=== PATIENT | male | born 1955 | race Caucasian/White ===

== ENCOUNTER 2021-07-29 10:20 | Inpatient (IN) | payer SELFPAY ==
[2021-07-29 13:22] LABS: #Eosinphils 0.2 thou/uL (0.0-0.7); #Lymphocytes 1.9 thou/uL (1.20-3.40); #Monocytes 1.2 thou/uL (0.11-0.59); #Neutrophils 9.2 thou/uL (1.40-6.50); %Basophils 0.2 % (0.0-1.0); %Eosinophils 1.3 % (0.0-10.0); %Lymphocytes 14.9 % (21.0-51.0); %Monocytes 9.6 % (0.0-10.0); %Neutrophils 74.1 % (42.0-75.0); Hemoglobin 13.8 g/dL (14.0-18.0); Mean Corpuscular Hemoglobin 31.1 pg (27.0-31.0); Mean Corpuscular Volume 94.2 fL (78.0-98.0); Mean Platelet Volume 8.8 fL (7.4-10.4); Platelet Count 332 thou/uL (130-400); RBC Distribution Width 11.9 % (11.5-14.5); Red Blood Cell (RBC) Count 4.43 mill/uL (4.70-6.10); White Blood Cell (WBC) Count 12.5 thou/uL (4.8-10.8)
[2021-07-29 13:42] LABS: ALT (SGPT) 55 U/L (8-55); AST (SGOT) 27 U/L (5-34); Albumin 4.3 g/dL (3.4-4.8); Alkaline Phosphatase 155 U/L (40-110); Anion Gap 13 mmol/L (10-20); BUN (Urea Nitrogen) 13 mg/dL (8.4-25.7); Bilirubin, Total 0.8 mg/dL (0.2-1.2); CRP (Inflammatory) 2.93 mg/dL (= or < 0.5); Calc. Creatinine Clearance 0 mL/min (70-130); Calcium 9.4 mg/dL (7.8-10.44); Carbon Dioxide 25 mmol/L (23-31); Chloride 103 mmol/L (98-107); Glucose 138 mg/dL (80-115); Potassium 3.2 mmol/L (3.5-5.1); Protein, Total 8.3 g/dL (5.8-8.1); Sodium 138 mmol/L (136-145)
[2021-07-29] MEDS ORDERED: Cefepime 2 GM VIAL ONE (15:04)
[2021-07-29] MEDS ORDERED: Potassium Chloride 20 MEQ TAB ONE (15:04)
[2021-07-29] MEDS ORDERED: VANCOMYCIN 2 GRAM/400 ML BAG 2 GM in Premix Bag 1 BAG IVPB SCH (15:30)
[2021-07-29] MEDS ORDERED: HumaLOG 300 UNITS/3 ML VIAL SC PRN ×2 (16:55)
[2021-07-29] MEDS ORDERED: Dextrose 50% Abboject 50 ML SYRINGE SLOW IVP PRN (16:55)
[2021-07-29] MEDS ORDERED: Guaifenesin DM 100-10/5 ML UDCUP PO PRN (16:55)
[2021-07-29] MEDS ORDERED: HYDROcodone/Acetaminophen 7.5/325 mg Tablet PO PRN (16:55)
[2021-07-29] MEDS ORDERED: Dextrose 5% in Water 1,000 ML IV PRN (16:55)
[2021-07-29] MEDS ORDERED: Ondansetron PF 4 MG/2 ML Vial IVP PRN (16:55)
[2021-07-29] MEDS ORDERED: Acetaminophen 325 MG TAB PO PRN (16:55)
[2021-07-29] MEDS: metFORMIN 500 MG TAB PO SCH (17:57)
[2021-07-29] MEDS: Carvedilol 6.25 MG TAB PO SCH (17:57)
[2021-07-29 20:31] VITALS: BMI 35.9
[2021-07-29] MEDS: Famotidine 20 MG TAB PO SCH (20:47)
[2021-07-29] MEDS: Senokot S 8.6-50 MG TAB PO SCH (20:47)
[2021-07-29] MEDS: Lisinopril 10 MG TAB PO SCH (20:47)
[2021-07-29] MEDS ORDERED: Vancomycin 1 GM in Premix Bag 1 BAG IVPB SCH (21:00)
[2021-07-29 23:14] LABS: SARS-CoV-2 NAA Rapid Test DETECTED (NotDetected)
[2021-07-30] MEDS: Cefepime 1 GM in Sodium Chloride 0.9% 100 ML IVPB SCH ×2 (03:17→15:58)
[2021-07-30] MEDS: VANCOMYCIN 1.75 GM/350 ML BAG 1.75 GM in Premix Bag 1 BAG IVPB SCH ×2 (04:33→16:48)
[2021-07-30 06:17] LABS: #Eosinphils 0.2 thou/uL (0.0-0.7); #Lymphocytes 2.1 thou/uL (1.20-3.40); #Monocytes 1.1 thou/uL (0.11-0.59); #Neutrophils 7.7 thou/uL (1.40-6.50); %Basophils 0.2 % (0.0-1.0); %Eosinophils 1.7 % (0.0-10.0); %Lymphocytes 19.1 % (21.0-51.0); %Monocytes 9.8 % (0.0-10.0); %Neutrophils 69.2 % (42.0-75.0); Hemoglobin 12.3 g/dL (14.0-18.0); Mean Corpuscular HGB CONC 32.6 g/dL (32.0-36.0); Mean Corpuscular Hemoglobin 30.8 pg (27.0-31.0); Mean Corpuscular Volume 94.4 fL (78.0-98.0); Mean Platelet Volume 8.6 fL (7.4-10.4); Platelet Count 293 thou/uL (130-400); RBC Distribution Width 11.8 % (11.5-14.5); Red Blood Cell (RBC) Count 3.98 mill/uL (4.70-6.10); White Blood Cell (WBC) Count 11.1 thou/uL (4.8-10.8)
[2021-07-30 06:18] LABS: Hemoglobin A1c 6.8 % (4.0-6.0)
[2021-07-30 06:34] LABS: Anion Gap 13 mmol/L (10-20); BUN (Urea Nitrogen) 10 mg/dL (8.4-25.7); Calc. Creatinine Clearance 134 mL/min (70-130); Calcium 8.4 mg/dL (7.8-10.44); Carbon Dioxide 25 mmol/L (23-31); Chloride 106 mmol/L (98-107); Glucose 126 mg/dL (80-115); Potassium 3.4 mmol/L (3.5-5.1); Sodium 141 mmol/L (136-145)
[2021-07-30] MEDS: Famotidine 20 MG TAB PO SCH ×2 (08:45→20:17)
[2021-07-30] MEDS: Lisinopril 10 MG TAB PO SCH ×2 (08:45→20:19)
[2021-07-30] MEDS: metFORMIN 500 MG TAB PO SCH ×2 (08:45→16:48)
[2021-07-30] MEDS: Enoxaparin Sodium 40 MG/0.4 ML SYRINGE SC SCH (08:45)
[2021-07-30] MEDS: Senokot S 8.6-50 MG TAB PO SCH ×2 (08:45→20:19)
[2021-07-30] MEDS: Amlodipine 10 MG TAB PO SCH (08:45)
[2021-07-30] MEDS: Carvedilol 6.25 MG TAB PO SCH ×2 (08:50→16:48)
[2021-07-30] MEDS ORDERED: Bupivacaine 0.25% HCL 30 ML VIAL ONE (10:53)
[2021-07-30] MEDS ORDERED: Xylocaine 1% w/ Epi 1:100K 10 ML VIAL ONE (10:53)
[2021-07-30] MEDS ORDERED: PROPOFOL 200 MG/20 ML VIAL ONE (11:56)
[2021-07-31] MEDS: Cefepime 1 GM in Sodium Chloride 0.9% 100 ML IVPB SCH ×2 (02:14→15:46)
[2021-07-31] MEDS: VANCOMYCIN 1.75 GM/350 ML BAG 1.75 GM in Premix Bag 1 BAG IVPB SCH ×2 (04:35→17:02)
[2021-07-31 04:36] LABS: Vancomycin, Trough 18.2 ug/mL
[2021-07-31] MEDS: Enoxaparin Sodium 40 MG/0.4 ML SYRINGE SC SCH (08:57)
[2021-07-31] MEDS: Famotidine 20 MG TAB PO SCH ×2 (08:57→20:52)
[2021-07-31] MEDS: metFORMIN 500 MG TAB PO SCH ×2 (08:57→17:02)
[2021-07-31] MEDS: Lisinopril 10 MG TAB PO SCH ×2 (08:58→20:53)
[2021-07-31] MEDS: Senokot S 8.6-50 MG TAB PO SCH ×2 (08:58→20:53)
[2021-07-31] MEDS: Amlodipine 10 MG TAB PO SCH (08:58)
[2021-07-31] MEDS: Carvedilol 6.25 MG TAB PO SCH ×2 (09:04→17:02)
[2021-07-31 10:17] LABS: Anion Gap 14 mmol/L (10-20); BUN (Urea Nitrogen) 10 mg/dL (8.4-25.7); Calc. Creatinine Clearance 141 mL/min (70-130); Calcium 8.5 mg/dL (7.8-10.44); Carbon Dioxide 21 mmol/L (23-31); Chloride 107 mmol/L (98-107); Glucose 119 mg/dL (80-115); Potassium 3.3 mmol/L (3.5-5.1); Sodium 139 mmol/L (136-145)
[2021-07-31] MEDS ORDERED: Potassium Chloride 20 MEQ TAB PO SCH (17:30)
[2021-08-01] MEDS: Cefepime 1 GM in Sodium Chloride 0.9% 100 ML IVPB SCH ×2 (04:30→17:30)
[2021-08-01] MEDS: VANCOMYCIN 1.75 GM/350 ML BAG 1.75 GM in Premix Bag 1 BAG IVPB SCH ×2 (04:30→19:28)
[2021-08-01 06:42] LABS: Anion Gap 11 mmol/L (10-20); BUN (Urea Nitrogen) 8 mg/dL (8.4-25.7); CRP (Inflammatory) 1.61 mg/dL (= or < 0.5); Calc. Creatinine Clearance 143 mL/min (70-130); Calcium 8.7 mg/dL (7.8-10.44); Carbon Dioxide 24 mmol/L (23-31); Chloride 109 mmol/L (98-107); Glucose 121 mg/dL (80-115); Potassium 3.5 mmol/L (3.5-5.1); Sodium 140 mmol/L (136-145)
[2021-08-01] MEDS: Cholecalciferol 1,000 UNITS (25 MCG) TAB PO SCH (09:01)
[2021-08-01] MEDS: Enoxaparin Sodium 40 MG/0.4 ML SYRINGE SC SCH (09:01)
[2021-08-01] MEDS: Ascorbic Acid 500 mg Chewable Tablet PO SCH (09:01)
[2021-08-01] MEDS: Carvedilol 6.25 MG TAB PO SCH ×2 (09:02→19:29)
[2021-08-01] MEDS: Famotidine 20 MG TAB PO SCH ×2 (09:02→19:54)
[2021-08-01] MEDS: Amlodipine 10 MG TAB PO SCH (09:02)
[2021-08-01] MEDS: metFORMIN 500 MG TAB PO SCH ×2 (09:02→19:29)
[2021-08-01] MEDS: Senokot S 8.6-50 MG TAB PO SCH ×2 (09:03→19:54)
[2021-08-01] MEDS: Lisinopril 10 MG TAB PO SCH ×2 (09:03→19:54)
[2021-08-01 16:22] LABS: Vancomycin, Trough 20.7 ug/mL
[2021-08-02] MEDS: Cefepime 1 GM in Sodium Chloride 0.9% 100 ML IVPB SCH (04:04)
[2021-08-02] MEDS: VANCOMYCIN 1.75 GM/350 ML BAG 1.75 GM in Premix Bag 1 BAG IVPB SCH (04:04)
[2021-08-02 06:01] LABS: Anion Gap 9 mmol/L (10-20); BUN (Urea Nitrogen) 7 mg/dL (8.4-25.7); CRP (Inflammatory) 1.12 mg/dL (= or < 0.5); Calc. Creatinine Clearance 148 mL/min (70-130); Calcium 8.7 mg/dL (7.8-10.44); Carbon Dioxide 24 mmol/L (23-31); Chloride 111 mmol/L (98-107); Glucose 115 mg/dL (80-115); Potassium 3.5 mmol/L (3.5-5.1); Sodium 140 mmol/L (136-145)
[2021-08-02] MEDS: Cholecalciferol 1,000 UNITS (25 MCG) TAB PO SCH (08:22)
[2021-08-02] MEDS: Famotidine 20 MG TAB PO SCH (08:23)
[2021-08-02] MEDS: Carvedilol 6.25 MG TAB PO SCH (08:23)
[2021-08-02] MEDS: Amlodipine 10 MG TAB PO SCH (08:23)
[2021-08-02] MEDS: Ascorbic Acid 500 mg Chewable Tablet PO SCH (08:23)
[2021-08-02] MEDS: Lisinopril 10 MG TAB PO SCH (08:24)
[2021-08-02] MEDS: metFORMIN 500 MG TAB PO SCH (08:24)
[2021-08-02] MEDS: Enoxaparin Sodium 40 MG/0.4 ML SYRINGE SC SCH (08:24)
[2021-08-02] MEDS: Senokot S 8.6-50 MG TAB PO SCH (08:24)
[2021-08-02 12:46] VITALS: BP 130/77; TEMP 98.2
== END 2021-08-02 14:35 | disposition home or self-care (01) | DRG 616 ==
LOC: ERS 10:20 → SURG A 16:55
PROVIDERS: ADMIT Internal Medicine; ATTEND Internal Medicine
PROC: 8E0ZXY6 Isolation (ICD-10-PCS; 2021-07-29)
PROC: 0Y6Q0Z3 Detachment at Left 1st Toe, Low, Open Approach (ICD-10-PCS; principal; 2021-07-30)
DX: E11.69 Type 2 diabetes mellitus with other specified complication (principal); U07.1 COVID-19; E11.52 Type 2 diabetes mellitus with diabetic peripheral angiopathy with gangrene; M86.172 Other acute osteomyelitis, left ankle and foot; I96 Gangrene, not elsewhere classified; I10 Essential (primary) hypertension; E11.42 Type 2 diabetes mellitus with diabetic polyneuropathy; E66.9 Obesity, unspecified; Z89.511 Acquired absence of right leg below knee; Z89.422 Acquired absence of other left toe(s); Z79.84 Long term (current) use of oral hypoglycemic drugs; Z79.899 Other long term (current) drug therapy; Z68.36 Body mass index [BMI] 36.0-36.9, adult; Z88.5 Allergy status to narcotic agent
CPT/HCPCS: 36415; 36416; 80048; 80053; 80202; 83036; 83605; 85025; 86140; 87040; 88305; 88311; 94760; 96365; 96367; J0692; J1650; J2704; J3370; J3490; S0020; U0002